=== PATIENT | female | born 1965 | race African-American/Black ===

== ENCOUNTER 2023-02-14 18:31 | Emergency (ER) | payer OTHER ==
[~2023-02-14] VITALS: Ht 170.2 cm; Wt 79.0 kg
[2023-02-14 18:38] VITALS: BP 140/100; PULSE 67; RESP 16; TEMP 98.6; O2SAT 100
[2023-02-14] MEDS ORDERED: MECLIZINE 25MG TABLET PO ONE (19:00)
[2023-02-14 19:25] LABS: BASOPHILS % 0.3 % (0.0-2.0); HEMATOCRIT. 40.9 % (36.0-48.0); HEMOGLOBIN. 13.6 g/dL (12.0-16.0); LYMPHOCYTES % 23.3 % (20.0-50.0); MEAN CORPUSCULAR VOLUME 90.1 fL (81.0-99.0); MEAN PLATELET VOLUME 7.4 fl (7.4-10.4); MONOCYTES % 4.9 % (2.0-8.0); NEUTROPHILS % 70.5 % (40.0-76.0); PLATELET 260 x1000/uL (130-400); RED BLOOD CELL COUNT 4.54 mill/uL (4.2-5.4); RED CELL DISTRIBUTION WIDTH 12.8 % (11.6-14.6)
[2023-02-14 19:30] LABS: CHLORIDE 105 mEq/L (98-107)
== END 2023-02-14 21:00 | disposition home or self-care (01) ==
LOC: ER 18:31
DX: R42 Dizziness and giddiness (principal); Z88.2 Allergy status to sulfonamides; Z98.890 Other specified postprocedural states
CPT/HCPCS: 99285; 71045; 80053; 85025; 84484; 36415; 93005; J8597